=== PATIENT | male | born 1995 ===

== ENCOUNTER 2022-01-11 07:23 | Day surgery (SDC) | payer OTHER ==
[~2022-01-11] VITALS: Ht 180.3 cm; Wt 97.1 kg
[2022-01-11] MEDS ORDERED: TORADOL PO (08:50)
[2022-01-11] MEDS ORDERED: AMOX/K CLAV875 M1 PO (08:53)
[2022-01-11 10:20] VITALS: BP 100/58
== END 2022-01-11 10:47 | DRG 603 ==
LOC: ORM 07:23 → EDSEX 08:00 → ORM 10:47
PROVIDERS: ATTEND Surgery
PROC: 0JB90ZX Excision of Buttock Subcutaneous Tissue and Fascia, Open Approach, Diagnostic (ICD-10-PCS; principal; 2022-01-11)
DX: L05.01 Pilonidal cyst with abscess (principal)
CPT/HCPCS: C9290; J0131; J1100